=== PATIENT | male | born 1960 | race Two or more races ===

== ENCOUNTER 2018-06-09 16:00 | Emergency (ER) | payer MEDICAID ==
--- NOTE | 2018-06-09 16:08 | ED Physician Chart ---
ED Chief Complaint/HPI - Patient Information Date Seen:: 06/09/18 Time Seen:: 16:16 Chief Complaint:: dysuria & painful testicle, c/o STD History of Present Illness:: dysuria & painful testicle, c/o STD in a man with a chronic left inguinal hernia. no penile discharge. no h/ot STD Allergies:: Allergies Allergy/AdvReac Type Severity Reaction Status Date / Time MDX No Known Allergies - Nka Allergy Verified 04/20/13 13:12 [No Known Allergies - Nka] Historian:: Patient Review:: Nurse's Note Reviewed ED Review of Systems - Review of Systems General/Constitutional: No fever, No chills, No weight loss, No weakness, No diaphoresis, No edema, No loss of appetite Skin: Other (large chronic left inguinal hernia) Head: No headache, No light-headedness Eyes: No loss of vision, No pain, No diplopia ENT: No earache, No nasal drainage, No sore throat, No tinnitus Neck: No neck pain, No swelling, No thyromegaly, No stiffness, No mass noted Pulmonary: No SOB, No cough, No sputum, No wheezing GI: No nausea, No vomiting, No diarrhea, No pain, No melena, No hematochezia, No constipation, No hematemesis G/U: Dysuria, Frequency, No hematuria, No nacturia Musculoskeletal: No bone or joint pain, No back pain, No muscle pain Endocrine: No polyuria, No polydipsia Psychiatric: No prior psych history, No depression, No anxiety, No suicidal ideation, No homicidal ideation, No auditory hallucination, No visual hallucination Hematopoietic: No bruising, No lymphadenopathy Allergic/Immuno: No urticaria, No angioedema ED Past Medical History - Past Medical History Obtainable: Yes Past Medical History: Other (large left inguinal hernia that he has had for years) Social History: Smoker, Alcohol Family Medical History - Family Member Mother History Unknown: Yes ED Physical Exam - Physical Examination General/Constitutional: Awake, Well-developed, well-nourished, Alert, No distress, GCS 15, Non-toxic appearing, Ambulatory Other Gen/Cons comments:: smell of alcohol on breath. acts sober. Head: Atraumatic Eyes: Lids, conjuctiva normal, PERRL, EOMI Skin: No lymphadenopathy Other Skin comments:: slightly irritated urethra which is pink ENMT: External ears, nose nl Neck: Nontender, Full ROM w/o pain, No nuchal rigidity, No stridor Respiratory: Nl effort/Exclusion, Clear to Auscultation, No Wheeze/Rhonchi/Rales GI: No tenderness/rebounding/guarding, No organomegaly, Normal BS's, Nondistended Other GI comments:: normal gas passsage with normal bowel movement without nausea or vomiting. chronic, large, left inguinal hernia with intestines in his scrotum on left. no tinkles or rushes to auscultation. : No CVA tenderness, No discharge Other comments:: chronic, large, left inguinal hernia with intestines in his scrotum on left. no tinkles or rushes to auscultation. normal gas passsage with normal bowel movement without nausea or vomiting. slightly irritated urethra which is pink Extremities: No tenderness or effusion, Full ROM, normal strength in all extremities, No edema, Normal digits & nails Neuro/Psych: Alert/oriented, Normal sensory exam, Normal motor strength, Judgement/insight normal, Mood normal, Normal gait, No focal deficits Misc: Normal back, No paraspinal tenderness ED Assessment - Assessment General Assessment: ultrasound of scrotum: no torsion, hydrocele present with small left epidydimal cyst and large hernia ED Septic Shock - . Is Septic Shock (SBP<90, OR Lactate>4 mmol\L) present?: No ED Reassessment (Disposition) - Reassessment Reassessment Condition:: Improved - Diagnosis Diagnosis:: Large left inguinal hernia without obstruction Presumed STD Urinary tract infection Hydrocele Epidydimal cyst on L Chronic alcohol use - Aftercare/Follow up Instructions Aftercare/Follow-Up Instructions:: Refer to Discharge Instructions Notes:: no sex while being treated for UTI. Call us in 5 days if we don't call you regarding the syphillis and gonorrhea and chlamydia results. referred to Dr. Severino for urology,only on an elective basis. referred to Dr. Guillory for hernia, only on an elective basis. told to return on an emergent basis if s/s of bowel obstruction developed. Medication Prescribed:: Bactrim DS 1 po bid # 20 - Patient Disposition Discharge/Transfer:: Home Condition at Disposition:: Stable, Improved
[2018-06-09] MEDS ORDERED: Lactated Ringer 1,000 ML IV ONE (16:33)
[2018-06-09 16:40] LABS: URINE SOURCE CLEAN C
[2018-06-09 16:44] LABS: URINE BILIRUBIN SMALL (NEGATIVE); URINE BLOOD LARGE (NEGATIVE); URINE GLUCOSE (UA) NEGATIVE (NEGATIVE); URINE KETONE 15 mg/dL (NEGATIVE); URINE LEUKOCYTE ESTERASE MODERATE (NEGATIVE); URINE MICROSCOPIC INDICATED? YES; URINE NITRATE NEGATIVE (NEGATIVE); URINE PROTEIN 100 mg/dL (NEGATIVE)
[2018-06-09 16:50] LABS: URINE CLARITY CLOUDY (CLEAR); URINE COLOR YELLOW
[2018-06-09 16:51] LABS: URINE WBC 50-100 /hpf (0-5)
[2018-06-09 16:52] LABS: URINE EPITHELIAL CELLS NONE SEEN /lpf (FEW)
[2018-06-09] MEDS ORDERED: Sulfamethoxazole/TMP 800/160mg Tab PO ONE (16:52)
[2018-06-09 16:53] LABS: % BASOPHILS 0.3 % (0.0-2.0); % EOSINOPHILS 2.1 % (0.0-5.0); % LYMPHOCYTES 8.6 % (20.0-50.0); % MONOCYTES 4.3 % (2.0-10.0); % NEUTROPHILS 84.7 % (40.0-80.0); EOSINOPHILE ABSOLUTE 0.3 Th/cmm (0.1-0.4); HEMATOCRIT 43.4 % (41.0-60); HEMOGLOBIN 14.9 gm/dL (12-16); LYMPHOCYTE ABSOLUTE 1.2 Th/cmm (1.5-3.0); MEAN CELL VOLUME 93.1 fl (80-99); MEAN CORPUSCULAR HEMOGLOBIN 31.8 pg (26.0-30.0); MEAN CORPUSCULAR HGB CONC 34.2 pg (28.0-36.0); MEAN PLATELET VOLUME 7.7 fl; MONOCYTE ABSOLUTE 0.6 Th/cmm (0.3-1.0); NEUTROPHILE ABSOLUTE 12.3 Th/cmm (1.8-8.0); PLATELET COUNT 379 Th/cmm (150-400); RED BLOOD COUNT 4.67 Mil/cmm (4.30-5.70); RED CELL DISTRIBUTION WIDTH 11.7 % (11.5-20.0); WHITE BLOOD COUNT 14.4 Th/cmm (4.8-10.8)
[2018-06-09 16:53] LABS: URINE BACTERIA MODERATE /hpf (NONE SEEN)
[2018-06-09] MEDS ORDERED: Sulfamethoxazole/TMP 800/160mg Tab ONE (16:58)
[2018-06-09 17:10] LABS: ANION GAP 16.7 (7.0-16.0); BUN - UREA NITROGEN 14 mg/dL (7-25); CALCIUM SERUM 9.2 mg/dL (8.6-10.3); CARBON DIOXIDE 21.8 mEq/L (21.0-31.0); CHLORIDE 104 mEq/L (98-107); CREATININE - SERUM 0.8 mg/dL (0.7-1.3); GFR AFRICAN-AMERICAN > 60.0 ml/min (>90); GFR NON AFRICAN-AMERICAN > 60.0 ml/min; GLUCOSE 118 mg/dL (70-105); POTASSIUM SERUM 3.5 mEq/L (3.5-5.1); SODIUM SERUM 139 mEq/L (136-145)
[2018-06-09] MEDS ORDERED: Potassium Chloride Elixir 20 mEq /15 mL UDC ONE (17:44)
--- NOTE | 2018-06-10 08:39 | Diagnostic Imaging Report ---
Ultrasound scrotum HISTORY: Left scrotal pain for one week COMPARISON: None Technique/procedure: Sonography of the scrotum and contents was performed in multiple planes. FINDINGS: The right testicle measures 3.5 x 2.8 x 2.5 cm and demonstrates heterogeneous echogenicity with no evidence of discrete focal lesions. The right epididymal head measures 1 cm. There is a small right hydrocele. Vascular flow to the right testicle is noted. The left testicle measures 3.9 x 3.0 x 3.3 cm and demonstrates heterogeneous echogenicity with no evidence of discrete focal lesions. The left epididymal head measures 1.3 cm demonstrating a hypoechoic area measuring 0.7 cm. Vascular flow to left testicle is noted. There is a moderate to large left hydrocele. IMPRESSION: Moderate to large left hydrocele probably due to underlying infectious or inflammatory process. Clinical correlation recommended. A small right hydrocele is also noted. Vascular flow to the bilateral testicles noted. Mild heterogeneity of the left epididymal head with possible small lesion measuring 7 mm which is nonspecific may be due to infectious or inflammatory process. Neoplastic process is less likely. Recommend short-term follow ultrasound exam after resolution of acute symptoms.
== END 2018-06-09 19:00 | disposition home or self-care (01) ==
LOC: ER 16:00
DX: K40.90 Unilateral inguinal hernia, without obstruction or gangrene, not specified as recurrent (principal); N39.0 Urinary tract infection, site not specified; N43.3 Hydrocele, unspecified; N50.3 Cyst of epididymis; A64 Unspecified sexually transmitted disease; F17.200 Nicotine dependence, unspecified, uncomplicated; Z72.89 Other problems related to lifestyle
CPT/HCPCS: 36415-UA; 76870-TC; 80048-TC; 80320-TC; 81001-TC; 85025-TC; 86592-TC; 87086-90; J0696